=== PATIENT | female | born 1975 | race Caucasian/White ===

== ENCOUNTER 2017-12-21 00:42 | Emergency (ER) | payer BC ==
[~2017-12-21] VITALS: Ht 162.6 cm; Wt 98.2 kg
[~2017-12-21 00:42] MED LIST: DOXYCYCLINE 10100 MG PO; LORTAB 5/500 501 TAB PO; METRONIDAZOLE500 MG PO; NO HOME MEDICATIONS; NORCO 325 MG-51 TAB PO; PERCOCET 325 MG1 TA2 PO; PHENERGAN W/CO120 ML PO; ZITHROMAX 250M250 MG PO
[2017-12-21 00:59] VITALS: TEMP 98.4
[2017-12-21 02:07] LABS: BASO # 0.1 (0.0-0.2); BASO % 0.6 % (0.0-2.0); EOS # 0.2 (0.0-0.7); EOS % 1.3 % (0-4.0); GRAN # 7.2 (1.4-6.5); HEMATOCRIT 41.6 % (37.0-47.0); HEMOGLOBIN 13.7 g/dl (12.5-16.0); LYMPH # 3.5 (1.2-3.4); LYMPH % 29.1 % (20.0-51.0); MEAN CELL VOLUME 77 fl (80.0-100.0); MEAN CORPUSCULAR HEMOGLOBIN 26 pg (27.0-31.0); MEAN CORPUSCULAR HGB CONC 33 g/dl (33.0-37.0); MEAN PLATELET VOLUME 8.4 fl (7.4-10.4); MONO # 0.9 (0.1-0.6); MONO % 7.7 % (1.7-9.3); PLATELET COUNT 422 K/mm3 (130-400); RED BLOOD COUNT 5.38 M/mm3 (4.10-5.30); REDCELL DISTRIBUTION WIDTH-CV 17.3 % (11.5-14.5)
[2017-12-21 02:21] LABS: BILIRUBIN,TOTAL 0.2 mg/dL (0.0-1.0); CALCIUM 8.9 mg/dL (8.4-10.2); CREATININE, serum 0.76 mg/dL (0.52-1.25); POTASSIUM 3.9 mmol/L (3.4-5.0); TOTAL PROTEIN 7.6 gm/dL (6.4-8.2)
[2017-12-21] MEDS ORDERED: ATARAX 25MG25 MG/TAB PO (03:48)
[2017-12-21] MEDS ORDERED: ZOFRAN ODT4 MG PO (03:48)
[2017-12-21 05:16] VITALS: BP 112/63; PULSE 68
== END 2017-12-21 05:15 | disposition home or self-care (01) ==
LOC: COL.ER 00:42
PROVIDERS: Physician Assistant
DX: F45.8 Other somatoform disorders (principal); Z87.891 Personal history of nicotine dependence
CPT/HCPCS: Q9967

== ENCOUNTER 2019-04-20 07:50 | Emergency (ER) | payer BC ==
[~2019-04-20] VITALS: Ht 162.6 cm; Wt 95.5 kg
[~2019-04-20 07:50] MED LIST changes: +ATARAX 25MG25 MG/TAB PO; +ZOFRAN ODT4 MG PO
[2019-04-20 07:59] VITALS: BP 115/58; PULSE 115; TEMP 98.3
[2019-04-20] MEDS ORDERED: ADIPEX-P37.5 MG PO (08:41)
[2019-04-20] MEDS ORDERED: TOPAMAX 25MG25 M1 PO (08:41)
[2019-04-20] MEDS ORDERED: TYLENOL PM EXTR1 TA1 PO (08:42)
== END 2019-04-20 08:57 | disposition home or self-care (01) ==
LOC: COL.ER 07:50
DX: L50.9 Urticaria, unspecified (principal); F17.210 Nicotine dependence, cigarettes, uncomplicated
CPT/HCPCS: J1040

== ENCOUNTER 2019-10-06 23:33 | Emergency (ER) | payer OTHER ==
[~2019-10-06] VITALS: Ht 162.6 cm; Wt 81.8 kg
[~2019-10-06 23:33] MED LIST changes: +ADIPEX-P37.5 MG PO; +TOPAMAX 25MG25 M1 PO; +TYLENOL PM EXTR1 TA1 PO
[2019-10-07] MEDS ORDERED: NORCO 325 MG-51 TAB PO (01:38)
[2019-10-07 02:00] VITALS: BP 148/70; PULSE 80; TEMP 97.6
== END 2019-10-07 02:00 | disposition home or self-care (01) ==
LOC: COL.ER 23:33
DX: S62.622A Displaced fracture of middle phalanx of right middle finger, initial encounter for closed fracture (principal); F17.210 Nicotine dependence, cigarettes, uncomplicated; W23.0XXA Caught, crushed, jammed, or pinched between moving objects, initial encounter; Y92.830 Public park as the place of occurrence of the external cause

== ENCOUNTER 2020-07-14 11:07 | Emergency (ER) | payer OTHER ==
[~2020-07-14] VITALS: Ht 162.6 cm; Wt 83.2 kg
[2020-07-14 11:23] VITALS: TEMP 98.3
[2020-07-14 12:03] LABS: BASO # 0.1 (0.0-0.2); BASO % 0.8 % (0.0-2.0); EOS # 0.1 (0.0-0.7); EOS % 0.9 % (0-4.0); GRAN # 6.2 (1.4-6.5); GRAN % 66.8 % (42.2-75.2); HEMATOCRIT 45.3 % (37.0-47.0); HEMOGLOBIN 14.7 g/dl (12.5-16.0); LYMPH # 2.2 (1.2-3.4); LYMPH % 23.9 % (20.0-51.0); MEAN CELL VOLUME 81 fl (80.0-100.0); MEAN CORPUSCULAR HEMOGLOBIN 26 pg (27.0-31.0); MEAN CORPUSCULAR HGB CONC 33 g/dl (33.0-37.0); MEAN PLATELET VOLUME 8.4 fl (7.4-10.4); MONO # 0.7 (0.1-0.6); MONO % 7.2 % (1.7-9.3); PLATELET COUNT 515 K/mm3 (130-400); RED BLOOD COUNT 5.59 M/mm3 (4.10-5.30); REDCELL DISTRIBUTION WIDTH-CV 15.3 % (11.5-14.5)
[2020-07-14 12:07] LABS: ALANINE AMINOTRANSFERASE 17 U/L (4-34); ALBUMIN 4.5 gm/dL (3.5-5.0); ALKALINE PHOSPHATASE 64 U/L (50-136); ANION GAP 10 mmol/L (7-16); AST,SGOT 18 U/L (15-37); BILIRUBIN,TOTAL 0.1 mg/dL (0.0-1.0); BLOOD UREA NITROGEN 11 mg/dL (7-17); CALCIUM 9.4 mg/dL (8.4-10.2); CARBON DIOXIDE 21 mmol/L (22-30); CHLORIDE 105 mmol/L (98-107); CREATININE, serum 0.73 (0.52-1.25); GLUCOSE 119 mg/dL (74-106); POTASSIUM 3.9 mmol/L (3.4-5.0); SODIUM 136 mmol/L (137-145); TOTAL PROTEIN 8.7 gm/dL (6.4-8.2)
[2020-07-14 12:08] LABS: ALCOHOL(ethanol),MEDICAL < 10 mg/dL
[2020-07-14 13:04] VITALS: BP 126/81; PULSE 98
== END 2020-07-14 13:04 | disposition home or self-care (01) ==
LOC: COL.ER 11:07
PROVIDERS: Family Medicine
DX: S16.1XXA Strain of muscle, fascia and tendon at neck level, initial encounter (principal); G40.409 Other generalized epilepsy and epileptic syndromes, not intractable, without status epilepticus; F17.210 Nicotine dependence, cigarettes, uncomplicated; Z88.6 Allergy status to analgesic agent; V89.2XXA Person injured in unspecified motor-vehicle accident, traffic, initial encounter

== ENCOUNTER 2022-04-06 16:02 | Emergency (ER) | payer BC, OTHER ==
[~2022-04-06] VITALS: Ht 162.6 cm; Wt 93.2 kg
[2022-04-06 16:05] VITALS: BP 140/95; TEMP 98.6
[2022-04-06 16:53] VITALS: PULSE 90
== END 2022-04-06 16:53 | disposition home or self-care (01) ==
LOC: COL.ER 16:02
DX: R59.1 Generalized enlarged lymph nodes (principal); Z28.310 Unvaccinated for COVID-19; Z87.891 Personal history of nicotine dependence